=== PATIENT | male | born 1965 | race African-American/Black ===

== ENCOUNTER → 2016-10-30 | Day surgery (SDC) | payer BC ==
[~2016-10-30] VITALS: Ht 165.1 cm; Wt 81.6 kg
[2016-10-30] VITALS (7 sets, daily range): BP systolic 108–145; BP diastolic 59–78
[~2016-10-30] MED LIST: ALEVE220 M2 PO; DiphenhydrAMINE 50mg/ml Inj IVP PRN; GLUCOSAMINE &1 EAC2 PO; LR 1000ml 1,000 ML IVLG SCH; LR 1000ml ONE; Labetalol 5mg/ml 20ml vial IV PRN; Lidocaine 1% MPF 10mg/ml 5ml ONE; MULTIVITAMINS1 EAC2 ORAL; NEXIUM40 MG ORAL; Propofol 10mg/ml 20ml IV ONE; VITAMIN C500 M1 ORAL
--- NOTE | 2016-10-30 09:03 | Anethesia Preoperative Eval ---
Anesthesia Pre-op PMH/ROS General Date of Evaluation: Oct 30, 2016 Anesthesiologist: Maulik ASA Score: ASA 2 Mallampati Score Class I : Soft palate, uvula, fauces, pillars visible Class II: Soft palate, uvula, fauces visible Class III: Soft palate, base of uvula visible Class IV: Only hard plate visible Mallampati Classification: Class I Surgeon: Mitch Diagnosis: Esophagitis Surgical Procedure: EGD Anesthesia History: none Family History: no anesthesia problems Allergies: Coded Allergies: NO KNOWN ALLERGIES (Verified Allergy, Unknown, 01/15/15) Medications: see eMAR Past Medical History Cardiovascular: Denies: CAD, HTN, ND, arrhythmia, other, valve dz Pulmonary: Denies: COPD, JOSE GUADALUPE, asthma, other Gastrointestinal/Genitourinary: Reports: GERD, other - esophagitis, Denies: CRI, ESRD Neurologic/Psychiatric: Denies: CVA, TIA, dementia, depression/anxiety, other Endocrine: Denies: DM, hypothyroidism, other, steroids HEENT: Denies: UPPER SKAGIT (L), UPPER SKAGIT (R), cataract (L), cataract (R), glaucoma, other Hematology/Immune: Denies: DVT, anemia, bleeding disorder, other Musculoskeletal/Integumentary: Denies: DDD, DJD, OA, RA, edema, other PSxH Narrative: Right rotator cuff repair, left knee arthroscopy Anesthesia Pre-op Phys. Exam Physician Exam Last Vital Signs Date Time Temp Pulse Resp B/P Pulse Ox O2 Delivery O2 Flow Rate FiO2 10/30/16 08:17 97.9 54 18 127/72 100 Room Air Constitutional: NAD Cardiovascular: RRR Respiratory: CTA Airway Exam Mallampati Score: Class II MO: full ROM: full Anesthesia Pre-op A/P Labs see chart Studies Pre-op Studies: EKG - SB Risk Assessment & Plan Assessment: ASA II Plan: MAC Status Change Before Surgery: No Pre-Antibiotics Drug: N/A ARLYN MANUEL M.D. Oct 30, 2016 09:03
--- NOTE | 2016-10-30 09:26 | Immediate Post-Op Evaluation ---
Immediate Post-Op Evalulation Immediate Post-Op Evalulation Procedure: Esophagitis Date of Evaluation: Oct 30, 2016 Time of Evaluation: 10:40 IV Fluids: 400 Blood Products: 0 Estimated Blood Loss: 0 Urinary Output: 0 Blood Pressure Systolic: 112 Blood Pressure Diastolic: 78 Pulse Rate: 92 Respiratory Rate: 16 O2 Sat by Pulse Oximetry: 100 Temperature (Fahrenheit): 98 Pain Score (1-10): 0 Nausea: No Vomiting: No Complications 0 Patient Status: awake, reacts, patent, none Hydration Status: adequate Drug: N/A ARLYN MANUEL M.D. Oct 30, 2016 09:26
--- NOTE | 2016-10-30 09:27 | 48 Hour Post Anesthesia Eval ---
Post Anesthesia Evaluation Procedure: Esophagitis Date of Evaluation: Oct 30, 2016 Blood Pressure Systolic: 122 0: 84 Pulse Rate: 88 Respiratory Rate: 17 O2 Sat by Pulse Oximetry: 100 Airway: patent Nausea: No Vomiting: No Pain Intensity: 0 Hydration Status: adequate Cardiopulmonary Status: at baseline Mental Status/LOC: patient returned to baseline Post-Anesthesia Complications: 0 Follow-up care needed: ready to discharge ARLYN MANUEL M.D. Oct 30, 2016 09:27
--- NOTE | 2016-10-30 10:09 | Short Stay Surgery H&P ---
History of Present Illness History of Present Illness Chief Complaint esophagitis HPI Joaquín Walker is a 51 year old male who was admitted on for Esophagitis Patient History Allergies: Coded Allergies: NO KNOWN ALLERGIES (Verified Allergy, Unknown, 01/15/15) PAST MEDICAL HISTORY: (1) Esophagitis Past Surgeries: Social History: Medication History Scheduled Ascorbic Acid* (Vitamin C*), 500 MG ORAL DAILY, (Reported) Esomeprazole Magnesium (Nexium), 40 MG ORAL DAILY, (Reported) Gluc 2KCL/Chondr/Ravi Hy/Hy Ac (Glucosamine & Chondroitin Cap), 1 EACH PO DAILY, (Reported) Multivitamins* (Multivitamins*), 1 TAB ORAL DAILY, (Reported) Discontinued Medications Naproxen Sodium (Aleve), 220 MG PO DAILY, (Reported) Discontinued Reason: Pt stopped taking med Review of Systems Cardiovascular: Reports: no symptoms Skeletal: Reports: no symptoms Gastrointestinal: Reports: gastro esophageal reflux disease Genitourinary: Reports: no symptoms Neurologic: Reports: no symptoms Endocrine: Reports: no symptoms Hematologic: Reports: no symptoms Physical Exam Vital Signs Last Vital Signs Date Time Temp Pulse Resp B/P Pulse Ox O2 Delivery O2 Flow Rate FiO2 10/30/16 08:17 97.9 54 18 127/72 100 Room Air Skin: normal HENT: normal Heart: normal Lungs: normal Abdomen: normal Extremities: normal Plan Plan of Care egd Final Diagnosis: Attestation Are the patient's medical conditions optimized for surgery? Attestation Response: yes DERIK MCMAHAN Oct 30, 2016 10:09
--- NOTE | 2016-10-30 10:09 | Pre-Procedure Note/Attestation ---
Pre-Procedure Note/Attestation Complete Prior to Procedure Planned Procedure: not applicable Procedure Narrative: egd Indications for Procedure Pre-Operative Diagnosis: esophagitis Attestation I attest that I discussed the nature of the procedure; its benefits; risks and complications; and alternatives (and the risks and benefits of such alternatives ), prior to the procedure, with the patient (or the patient's legal player services representative). I attest that, if there was a reasonable possibility of needing a blood transfusion, the patient (or the patient's legal player services representative) was given the [facility] standardized written summary, pursuant to the Alberto Matilda Blood Safety Act ([place] Health and Safety Code # 1645, as amended). I attest that I re-evaluated the patient just prior to the surgery and that there has been no change in the patient's H&P, except as documented below: DERIK MCMAHAN Oct 30, 2016 10:09
--- NOTE | 2016-10-30 10:31 | Endoscopy Procedure Note ---
Endoscopy Procedure Note Indication for Procedure: gerd Procedures Performed: EGD Operative Findings/Diagnosis: esophagitis Specimen: yes Pt Tolerated Procedure Well: Yes Estimated Blood Loss: none Anesthesiologist: geoffrey Anesthesia: MAC Implant(s) used?: No 50 yrs or older w/o bx or poly: Not Applicable 10yrs. F/U not recommended: Not Applicable DERIK MCMAHAN Oct 30, 2016 10:31
--- NOTE | 2016-10-30 20:37 | Procedure Note ---
DATE OF PROCEDURE: 10/30/2016 SURGEON: Ethan Meyer M.D. PROCEDURE: Upper endoscopy with biopsy. ANESTHESIA: Per Dr. Vásquez. INSTRUMENT: Olympus adult flexible upper endoscope. INDICATION: 1. History of eosinophilic esophagitis. 2. Dysphagia. REASON FOR PROCEDURE: The procedure, risks, benefits, and possible consequences, including hemorrhage, aspiration, perforation and infection, and alternative treatments, were explained to the patient/legal guardian by Dr. Ethan Meyer and the patient/legal guardian understood and accepted these risks. DESCRIPTION OF PROCEDURE: After informed consent was obtained and the patient was adequately sedated, Olympus upper endoscope was advanced from mouth into the second portion of the duodenum and retroflexion was performed of the stomach. The patient had evidence of distal esophageal ring and classical findings are suspicious for eosinophilic esophagitis. Multiple biopsies from distal esophagus was obtained. The patient also had evidence of 3 cm hiatal hernia and also evidence of distal esophageal ring right at the GE junction. The scope was easily advanced into the stomach, so no dilatation needed at this time. In the stomach, there was evidence of diffuse gastritis and also in the duodenum, there was evidence of [id number] duodenitis. Random biopsy from the body and antrum was obtained to rule out H. pylori infection. The patient tolerated the procedure without any complication. SUMMARY OF FINDINGS: 1. Endoscopic findings classical for possibility of the eosinophilic esophagitis status post biopsy. 2. Distal esophageal ring. 3. A 3 cm hiatal hernia. 4. Gastritis. 5. Duodenitis. RECOMMENDATIONS: The patient to be continued on the Nexium daily and also we are going to order oral steroids for him to swallow for eosinophilic esophagitis. We will also order a follow up on the biopsies of the gastric to rule out H. pylori infection. The patient needs to get followup in the office and also most probably needs to get referral to an personnel placement specialist for food allergies. Ethan Meyer M.D. DR: AGATHA JOB#: [id number] CC:
--- NOTE | 2016-11-28 15:41 | Cardiology Report ---
APPROVED REPORT EKG Measurement Heart [id number] [place] [id number] Sinus bradycardia Otherwise normal ECG
== END | disposition home or self-care (01) ==
LOC: GAS 07:46
DX: K20.9 Esophagitis, unspecified (principal); K22.2 Esophageal obstruction; K44.9 Diaphragmatic hernia without obstruction or gangrene; K29.50 Unspecified chronic gastritis without bleeding; K29.80 Duodenitis without bleeding; K21.9 Gastro-esophageal reflux disease without esophagitis
CPT/HCPCS: 43239; 93005; J2704; J7120; 94003; 94150